=== PATIENT | female | born 1940 | race American Indian/Alaskan Native ===

== ENCOUNTER 2018-07-03 18:29 | Emergency (ER) | payer OTHER ==
[2018-07-03] MEDS ORDERED: Acetaminophen/Codeine 300-30 MG Tab PO ONE (20:01)
--- NOTE | 2018-07-03 20:02 | EDM.PDOC ---
ED HPI GENERAL MEDICAL PROBLEM - General Chief Complaint: Upper Extremity Injury/Pain Stated Complaint: AMBULANCE Time Seen by Provider: 07/03/18 19:05 Source of Information: Reports: Patient - History of Present Illness INITIAL COMMENTS - FREE TEXT/NARRATIVE: ED via [facility] with c/o pain to left wrist and upper left arm Reports going into [facility] caught on door ledge fell catching welf on extended left wrist. Wrist swollen. Hx fx right wrist 2 years ago. Denies other injury, No loss of consciousness, Did not hit head. Left Wrist Pain Score (Numeric/FACES): 6 - Related Data Allergies Allergy/AdvReac Type Severity Reaction Status Date / Time ampicillin Allergy Rash Verified 07/03/18 18:48 tramadol Allergy Cannot Verified 07/03/18 19:30 Remember Home Meds: Home Meds Furosemide [Lasix] 20 mg DAILY 07/03/18 [History] Hydrochlorothiazide [Microzide] 12.5 mg DAILY 07/03/18 [History] Lisinopril 20 mg DAILY 07/03/18 [History] Simvastatin 20 mg DAILY 07/03/18 [History] metFORMIN [Glucophage XR] 500 mg DAILY 07/03/18 [History] Past Medical History Cardiovascular History: Reports: Hypertension Gastrointestinal History: Reports: GERD Endocrine/Metabolic History: Reports: Diabetes, Type II Social & Family History - Tobacco Use Smoking Status *Q: Former Smoker Used Tobacco, but Quit: Yes Month/Year Tobacco Last Used: 12/1998 - Recreational Drug Use Recreational Drug Use: No Review of Systems - Review of Systems Review Of Systems: ROS reveals no pertinent complaints other than HPI. ED EXAM, GENERAL - Physical Exam Exam: See Below Exam Limited By: No Limitations General Appearance: Alert, Mild Distress Eye Exam: Bilateral Eye: EOMI (glasses) Ears: Normal External Exam, Hearing Loss Nose: Normal Inspection Throat/Mouth: Normal Inspection Head: Atraumatic, Normocephalic Neck: Normal Inspection. No: Tender Lateral, Tender Midline Respiratory/Chest: No Respiratory Distress, Lungs Clear Cardiovascular: Normal Peripheral Pulses, Regular Rate, Rhythm GI/Abdominal: Soft Back Exam: Normal Inspection, Full Range of Motion. No: Paraspinal Tenderness, Vertebral Tenderness Extremities: Arm Pain (upper with movement mid humeral shaft), Limited Range of Motion (left wrist, no gross deformity) Neurological: Alert, Oriented, Normal Cognition Psychiatric: Normal Affect (left wrist,) Skin Exam: Warm, Dry, Intact, Ecchymosis ED TRAUMA EXTREMITY PROCEDURES - Splinting Left Upper Extremity Splint Site: wrist Pre-Procedure NV Status: Normal Post-Procedure NV Status: Normal Splint Material: Aluminum-Foam, Sling Applied & Form Fitted By: Provider Provider Post-Splint Application NV Check: NV Status Normal Complications: No Course - Vital Signs Last Recorded V/S: Last Vital Signs Temp 97.9 F 07/03/18 18:39 Pulse 70 07/03/18 18:39 Resp 16 07/03/18 18:39 BP 105/56 L 07/03/18 18:39 Pulse Ox 93 L 07/03/18 18:39 - Orders/Labs/Meds Meds: Medications Discontinued Medications Generic Name Dose Route Start Last Admin Trade Name Wilver PRN Reason Stop Dose Admin Acetaminophen/Codeine Phosphate 1 tab 07/03/18 20:01 07/03/18 20:07 Tylenol With Codeine No.3 300mg/30mg PO 07/03/18 20:02 1 tab ONETIME ONE Administration - Radiology Interpretation Free Text/Narrative:: Name: KIET WITT Age: 77Years F Date: 07/03/2018 SSN: -- : [id number] Study: XR WRIST 1 OR 2 VIEWS Requesting Physician: SUKHWINDER GIANG Images: 2 Addl Studies: Provided Clinical History: Contrast: Contrast Medium: Contrast Amount: Contrast Method: CONFIDENTIALITY STATEMENT This report is intended only for use by the referring physician, and only in accordance with law. If you received this in error, call [phone]. Page 1 of 1 EXAM: XR Left Wrist, 2 Views CLINICAL HISTORY: 77 years old, female; Signs and symptoms; Other: Fall/pain TECHNIQUE: Frontal and lateral views of the left wrist. COMPARISON: No relevant prior studies available. FINDINGS: Bones/joints: Colles' fracture distal radius. Fracture ulnar styloid. Narrowing of the radiocarpal joint secondary to degenerative change. Degenerative changes in the triscaphe joint. No dislocation. Soft tissues: Unremarkable. No radiopaque foreign body. IMPRESSION: Colles' fracture distal radius. Fracture ulnar styloid. Thank you for allowing us to participate in the care of your patient. Dictated and Authenticated by: Nikhil De Los Santos MD 07/03/2018 7:24 PM Central Time ([place] & [place]) Name: KIET WITT Age: 77Years F Date: 07/03/2018 SSN: -- : 1940 Study: XR HUMERUS Requesting Physician: SUKHWINDER GIANG Images: 2 Addl Studies: Provided Clinical History: Contrast: Contrast Medium: Contrast Amount: Contrast Method: CONFIDENTIALITY STATEMENT This report is intended only for use by the referring physician, and only in accordance with law. If you received this in error, call [phone]. Page 1 of 1 EXAM: XR Left Humerus, 2 or More Views CLINICAL HISTORY: 77 years old, female; Signs and symptoms; Other: Fall/mid humerus pain TECHNIQUE: Frontal and lateral views of the left humerus. COMPARISON: No relevant prior studies available. FINDINGS: Bones/joints: Degenerative changes in the acromioclavicular joint with narrowing of the subacromial space which may indicate rotator cuff disease. No acute fracture. No dislocation. Soft tissues: Unremarkable. IMPRESSION: No acute findings. Thank you for allowing us to participate in the care of your patient. Dictated and Authenticated by: Nikhil De Los Santos MD 07/03/2018 7:30 PM Central Time ([place] & [place]) - Re-Assessments/Exams Free Text/Narrative Re-Assessment/Exam: 07/04/18 04:[address] [facility]. Splint and office will call patient in am to set appointment for Wednesday or Wednesday. Departure - Departure Time of Disposition: 19:57 Disposition: Home, Self-Care 01 Condition: Good Clinical Impression: Colles' fracture of left radius Qualifiers: Encounter type: initial encounter Fracture type: closed Qualified Code(s): S52.532A - Colles' fracture of left radius, initial encounter for closed fracture Ulna styloid fracture, closed Qualifiers: Encounter type: initial encounter Fracture alignment: nondisplaced Laterality: left Qualified Code(s): S52.615A - Nondisplaced fracture of left ulna styloid process, initial encounter for closed fracture - Discharge Information *PRESCRIPTION DRUG MONITORING PROGRAM REVIEWED*: Not Applicable Instructions: Colles Fracture Referrals: PCP,None [Primary Care Provider] - Forms: ED Department Discharge Additional Instructions: keep splint on elevate ice Dr. Lundberg- [facility], will call Wednesday morning to set up follow up for Wednesday or Wednesday tylenol #3 one every 4 hours as needed for pain #10
== END 2018-07-03 20:27 | disposition home or self-care (01) ==
LOC: DL.ED 18:29
DX: S52.532A Colles' fracture of left radius, initial encounter for closed fracture (principal); S52.615A Nondisplaced fracture of left ulna styloid process, initial encounter for closed fracture; I10 Essential (primary) hypertension; K21.9 Gastro-esophageal reflux disease without esophagitis; E11.9 Type 2 diabetes mellitus without complications; Z88.1 Allergy status to other antibiotic agents; Z88.5 Allergy status to narcotic agent; Z79.899 Other long term (current) drug therapy; Z87.891 Personal history of nicotine dependence; W18.31XA Fall on same level due to stepping on an object, initial encounter; Z79.84 Long term (current) use of oral hypoglycemic drugs
CPT/HCPCS: 29125; 73060; 73100; 99284; A9270